=== PATIENT | male | born 1995 | race Asian ===

== ENCOUNTER 2021-05-16 12:02 | Emergency (ER) | payer OTHER, SELFPAY ==
[2021-05-16 12:15] VITALS: BP 129/78; PULSE 73; RESP 16; TEMP 36.3; O2SAT 97; BMI 29.2
--- NOTE | 2021-05-16 13:15 | ED.WOUNDLAC ---
HPI - Wound/Laceration <CRICKET Willingham Last Filed: 05/16/21 19:27> General Chief Complaint: Wound/Laceration Stated Complaint: cut finger lt hand Time Seen by Provider: 05/16/21 13:11 History of Present Illness HPI narrative: Patient is a 26-year-old male presenting to the emergency department today for evaluation a left thumb laceration. Patient states that he was cutting a bagel with a serrated knife this morning when the injury occurred. He states he was able to get bleeding under control at home and he denies any additional injuries. He denies fever, chills, chest pain, shortness of breath, cough, abdominal pain, nausea, vomiting, diarrhea, or numbness and tingling throughout the bilateral upper extremities. No other concerns are voiced at this time. Patient states that his tetanus vaccination is up-to-date. Review of Systems <Justin Burgos PA-C - Last Filed: 05/16/21 19:27> Constitutional Constitutional: Denies chills, Denies fatigue, Denies fever(s), Denies frequent falls, Denies lethargy and Denies weakness ENT Ears, Nose, Mouth, and Throat: Denies change in voice, Denies dizziness, Denies neck pain, Denies sore throat and Denies throat swelling Cardiovascular Cardiovascular: Denies chest pain, Denies irregular heart rhythm, Denies lightheadedness, Denies palpitations, Denies dyspnea, Denies dyspnea on exertion and Denies orthopnea Respiratory Respiratory: Denies cough, Denies dyspnea, Denies dyspnea on exertion and Denies wheezing Gastrointestinal Gastrointestinal: Denies abdominal pain, Denies change in bowel habits, Denies diarrhea, Denies nausea and Denies vomiting Musculoskeletal Musculoskeletal: Denies neck pain Integumentary/Breasts Skin/Breast: Denies pruritus, Denies erythema, Denies rash and Reports wounds (Superficial laceration left thumb) Neurologic Neurologic: Denies dizziness, Denies frequent falls and Denies weakness Endocrine Endocrine: Denies fatigue and Denies palpitations Allergic/Immunologic Allergic/Immunologic: Denies urticaria, Denies throat swelling and Denies wheezing Exam <CRICKET Willingham Last Filed: 05/16/21 19:27> Narrative Exam Narrative: GENERAL: 26 year old patient appears stated age. Well-developed patient, in no acute distress. HEAD: Atraumatic. Normocephalic. EYES: Pupils equal round and reactive. Extraocular motions intact. No scleral icterus. No injection or drainage. ENT: Nose without bleeding, purulent drainage. Throat without erythema, tonsillar hypertrophy or exudate. Airway patent. NECK: Trachea midline. Non tender CARDIOVASCULAR: Regular rate and rhythm without murmurs, gallops, or rubs. RESPIRATORY: Clear to auscultation. Breath sounds equal bilaterally. No wheezes, rales, or rhonchi. GASTROINTESTINAL: Abdomen soft, non-tender, nondistended. EXTREMITIES: No edema or joint tenderness. Good sensation appreciated throughout the bilateral upper extremities to light touch. Gross motor function intact to the bilateral upper extremities. BACK: Nontender without deformity or crepitance. No flank tenderness. NEURO: AOx3. SKIN: No rash or erythema of visible areas. Superficial linear laceration of the left thumb on the dorsal aspect of the hand. Laceration is below the nail bed. No surrounding erythema, warmth, or induration noted. No foreign body noted in the wound during examination. Initial Vital Signs Initial Vital Signs: Vital Signs Temperature 97.4 F L 05/16/21 12:15 Pulse Rate 73 05/16/21 12:15 Respiratory Rate 16 05/16/21 12:15 Blood Pressure 129/78 05/16/21 12:15 Pulse Oximetry 97 05/16/21 12:15 Cardio Pulses: radial pulses present on the left <Froylan Fischer DO - Last Filed: 05/17/21 07:13> Initial Vital Signs Initial Vital Signs: Vital Signs Temperature 97.4 F L 05/16/21 12:15 Pulse Rate 73 05/16/21 12:15 Respiratory Rate 16 05/16/21 12:15 Blood Pressure 129/78 05/16/21 12:15 Pulse Oximetry 97 05/16/21 12:15 Course <Justin Burgos PA-C - Last Filed: 05/16/21 19:27> Course Course Narrative: Dermabond will be applied to the wound. Vital Signs Vital signs: Vital Signs - 8 hr 05/16/21 12:15 Temperature 97.4 F L Pulse Rate 73 Respiratory Rate 16 Blood Pressure 129/78 Pulse Oximetry 97 <DO Jay Terry Last Filed: 05/17/21 07:13> Vital Signs Vital signs: Vital Signs - 8 hr 05/16/21 12:15 Temperature 97.4 F L Pulse Rate 73 Respiratory Rate 16 Blood Pressure 129/78 Pulse Oximetry 97 MDM - Wound/Laceration <Justin Burgos PA-C - Last Filed: 05/16/21 19:27> [facility] Narrative Medical decision making narrative: Patient is a 26-year-old male presenting to the emergency department today for evaluation a left thumb laceration. To consider superficial skin laceration versus tendon injury versus foreign body. Overall physical examination history reassuring. No foreign body noted in the wound during expiration. Patient is satisfied with the plan to Dermabond the wound. Strict return precautions discussed with patient prior to discharge. Discharge Plan Departure Patient Disposition: Home Clinical Impression: Laceration Instructions: DI for Minor Laceration Activity Restrictions/Additional Instructions: *You have been diagnosed with left thumb laceration *What to do: *Please continue to take your regular medications as directed. [ ] New medication prescriptions sent to your pharmacy: [ ] [ ] New medication written as a paper prescription [X] No new medications given *Please follow up with your primary care provider in 2-3 days, call for an appointment. Let them know you were seen in the Emergency Department and that we ask that you be seen in follow up. We will electronically transmit a record of today's note if your PCP is in our system. *Avoid soaking the left hand. Dermabond will be removed on its own. *If you do not have a primary care provider please contact the [facility] Resource line at [phone]. They will ask some questions about your medical history and help get you set up with a doctor in the community. *Return to Emergency Department if you should have any new, worsening or concerning symptoms, such as fever greater than 101 F, shaking chills, worsening pain, discharge from the laceration, excessive warmth around the laceration, persistent vomiting or other bothersome symptoms. <Froylan Fischer DO - Last Filed: 05/17/21 07:13> Cosign ED Attending Cosignature Attestation: Dr Fischer Co-Sign Statement: I was available for consultation during this patient's emergency department visit. This chart is signed by myself for administrative purposes only. I did not have direct contact with this patient during this visit. They were seen independently by the APC.
--- NOTE | 2021-05-16 13:47 | PC.NURSE ---
small superficial lac to L thumb not deep enough to need sutures. bleeding controlled. dermabond placed. NAD
== END 2021-05-16 13:48 | disposition home or self-care (01) ==
PROVIDERS: Emergency Provider Physician Assistant
DX: S61.012A Laceration without foreign body of left thumb without damage to nail, initial encounter (principal); W26.0XXA Contact with knife, initial encounter; Y93.G1 Activity, food preparation and clean up
CPT/HCPCS: 12001; 99282

== ENCOUNTER 2022-03-13 19:33 | Emergency (ER) | payer OTHER, SELFPAY ==
[2022-03-13] VITALS (7 sets, daily range): BP systolic 127–140; BP diastolic 72–83; PULSE 92–112; RESP 24–29; TEMP 37.8; O2SAT 95–102; BMI 29.2
--- NOTE | 2022-03-13 19:43 | DI.RAD.S_ITS ---
PROCEDURE: XR CHEST 2V INDICATIONS: shortness of breath TECHNIQUE: 2 views of the chest were acquired. COMPARISON: None. FINDINGS: Surgical changes and devices: None. Lungs and pleura: Lungs are clear. No pleural effusions or pneumothorax. Mediastinum: Mediastinal contours are normal. Heart size is normal. Bones and chest wall: No suspicious bony abnormalities. Soft tissues appear unremarkable. IMPRESSION: 1. No acute cardiopulmonary disease. Dictated by: John Wong M.D. on 03/13/2022 at 20:44 Approved by: John Wong M.D. on 03/13/2022 at 20:46
[2022-03-13] MEDS: ONDANSETRON 4 MG/2 ML INJ IV (20:21)
[2022-03-13] MEDS: SODIUM CHLORIDE 0.9% 1,000 ML 1000 ML IV (20:22)
[2022-03-13 20:34] LABS: Add Manual Diff / Slide Review NO; Basophils Absolute Auto 0 /uL (0-100); Basophils Percent Auto 0.3 % (0-2); Eosinophils Absolute Auto 100 /uL (0-450); Eosinophils Percent Auto 1.4 % (2-4); Hematocrit 41.1 % (41-53); Hemoglobin 14.2 g/dL (13.5-17.5); Lymphocytes Absolute Auto 700 /uL (1100-4500); Lymphocytes Percent Auto 9.3 % (25-40); Mean Corpuscular HGB Conc 34.5 % (30-36); Mean Corpuscular Volume 86.8 fL (80-100); Monocytes Absolute Auto 1300 /uL (0-900); Monocytes Percent Auto 16.3 % (3-14); Neutrophils Absolute Auto 5700 /uL (1500-7000); Neutrophils Percent Auto 72.7 % (50-75); Platelet Count 236 X10^3/uL (150-400); Red Blood Cell Count 4.73 X10^6/uL (4.5-5.9); Red Cell Distribution Width 13.2 % (11.6-14.8); White Blood Cell Count 7.9 X10^3/uL (4.5-11.0)
[2022-03-13 20:37] LABS: Lactate (Lactic Acid) 0.7 mmol/L (0.7-2.1)
[2022-03-13 20:38] LABS: Alanine Aminotransferase 108 IU/L (<50); Albumin 4.9 g/dL (3.5-5.0); Albumin Globulin Ratio 1.4 (1.0-2.8); Alkaline Phosphatase 75 U/L (38-126); Aspartate Aminotransferase 65 IU/L (17-59); BUN Creatinine Ratio 10.1 (6-22); Bilirubin Total 0.3 mg/dL (0.2-1.3); Blood Urea Nitrogen 9 mg/dL (9-20); Calcium 9.1 mg/dL (8.4-10.2); Carbon Dioxide 22 mmol/L (22-32); Chloride 102 mmol/L (98-107); Estimated Glomerular Filt Rate > 60 mL/min (>60); Globulin 3.4 g/dL (1.7-4.1); Glucose 97 mg/dL (70-100); HEMOLYSIS < 15 (0-50); Potassium 3.9 mmol/L (3.4-5.1); Sodium 136 mmol/L (137-145); Total Protein 8.3 g/dL (6.3-8.2)
--- NOTE | 2022-03-13 20:51 | ED.FEVER ---
HPI - Fever General Chief Complaint: Shortness of Breath/Dyspnea Stated Complaint: COVID POSITIVE, SHORTNESS OF BREATH/CHEST PAIN Time Seen by Provider: 03/13/22 20:17 Source: patient Mode of arrival: Ambulatory History of Present Illness HPI Narrative: Patient is a healthy 27-year-old male who presents with COVID. He states his son had it last week he started having symptoms early this morning and tested positive. He has low-grade fever he feels like he is short of breath he is unvaccinated. His O2 sat is 97% on room air. He is mildly tachycardic. No other symptoms at this time. Related Data Allergies Allergy/AdvReac Type Severity Reaction Status Date / Time ibuprofen Allergy Swelling Verified 03/13/22 19:37 of Lip/Tongue/Throat Sulfa (Sulfonamide Allergy Verified 03/13/22 19:37 Antibiotics) Review of Systems Review of Systems Narrative: GENERAL: +fever HEENT: Denies sinus pain, ear pain, sore throat, difficulty swallowing, neck pain RESPIRATORY: See HPI CARDIOVASCULAR: Denies chest pain, palpitations, orthopnea, edema GASTROINTESTINAL: Denies nausea, vomiting, abdominal pain, diarrhea, constipation, melena. : Denies dysuria, frequency, incontinence, hematuria, urinary retention, flank pain. MUSCULOSKELETAL: Denies weakness, joint pain, or bony pain SKIN: No rash, no erythema, no pruritus NEUROLOGIC: Denies weakness, dizziness, headache, numbness, change in speech, confusion PSYCHIATRIC: No concerning psychosocial issues. 12 point review of systems is negative except for those stated above and HPI Patient History Social History Smoking Status: Never smoker Smoking Status: Never smoker alcohol intake frequency: holidays/special occasions only Substance Use Type: does not use Exam Initial Vital Signs Initial Vital Signs: Vital Signs Temperature 100.1 F H 03/13/22 19:37 Pulse Rate 112 H 03/13/22 19:37 Respiratory Rate 24 03/13/22 19:37 Blood Pressure 134/74 03/13/22 19:37 Pulse Oximetry 98 03/13/22 19:37 Oxygen Delivery Method 03/13/22 19:37 GENERAL: Alert 27-year-old male no acute distress HEENT: Head atraumatic,EOMI, pupils reactive, neck is supple CARDIOVASCULAR: Regular rate and rhythm without murmurs, rubs or gallops. RESPIRATORY: Breath sounds equal bilaterally, no wheezes rales or rhonchi. ABDOMEN: Soft, nontender. Normoactive bowel sounds all 4 quadrants. No guarding or rebound. EXTREMITIES: Normal range of motion, no clubbing or edema. Neurovascularly intact NEUROLOGICAL: Alert and oriented x4. SKIN: Warm, dry, no laceration, no petechiae, no rashes or lesions. Course Orders Ordered: ED Orders 03/13/22 19:43 XR chest 2V Stat EKG-12 Lead Stat Measure peak expiratory flow ONCE RT Consult Eval and Treat Now 03/13/22 20:15 Complete Blood Count AUTO DIFF Stat Comprehensive Metabolic Panel Stat Lactate (Lactic Acid) Stat Discontinued Medications Sodium Chloride (Normal Saline 0.9%) 1,000 mls @ 1,000 mls/hr IV BOLUS ONE Stop: 03/13/22 21:14 Last Admin: 03/13/22 20:25 Dose: Not Given Documented By: RORY Sodium Chloride (Normal Saline 0.9%) 1,000 mls @ 1,000 mls/hr IV BOLUS ONE Stop: 03/13/22 21:16 Last Infusion: 03/13/22 21:44 Dose: 0 mls/hr Documented By: Admin: 03/13/22 20:22 Dose: 1,000 mls/hr Documented By: RORY Ondansetron HCl (Ondansetron 4 Mg/2 Ml Inj) 4 mg IV NOW ONE Stop: 03/13/22 20:16 Last Admin: 03/13/22 20:21 Dose: 4 mg Documented By: BLANCA Vital Signs Vital signs: Vital Signs - 8 hr 03/13/22 19:37 03/13/22 20:05 03/13/22 20:10 Temperature 100.1 F H Pulse Rate 112 H 106 H 102 H Respiratory Rate 24 27 H 25 H Blood Pressure 134/74 136/81 140/83 Pulse Oximetry 98 95 102 H Oxygen Delivery Method Room Air Room Air Room Air 03/13/22 20:42 03/13/22 20:42 03/13/22 21:00 Temperature Pulse Rate 101 H Respiratory Rate 29 H Blood Pressure 127/72 128/76 Pulse Oximetry 97 Oxygen Delivery Method 03/13/22 21:00 03/13/22 21:30 09/23/22 21:30 Temperature Pulse Rate 98 H 92 H Respiratory Rate 27 H 29 H Blood Pressure 127/79 Pulse Oximetry 97 98 Oxygen Delivery Method 03/13/22 21:58 03/13/22 21:58 Temperature Pulse Rate 92 H Respiratory Rate 29 H Blood Pressure 130/73 Pulse Oximetry 99 Oxygen Delivery Method MDM - Fever Lab Data Result diagrams: 03/13/22 20:15 03/13/22 20:15 Labs: Lab Results 03/13/22 03/13/22 03/13/22 Range/Units 20:15 20:15 20:15 WBC 7.9 (4.5-11.0) X10^3/uL RBC 4.73 (4.5-5.9) X10^6/uL Hgb 14.2 (13.5-17.5) g/dL Hct 41.1 (41-53) % MCV 86.8 (80-100) fL MCH 30.0 (26-34) PG MCHC 34.5 (30-36) % RDW 13.2 (11.6-14.8) % Plt Count 236 (150-400) X10^3/uL Neut % (Auto) 72.7 (50-75) % Lymph % (Auto) 9.3 L (25-40) % [place] % (Auto) 16.3 H (3-14) % Eos % (Auto) 1.4 L (2-4) % Baso % (Auto) 0.3 (0-2) % Neut # (Auto) 5700 (3455-2083) /uL Lymph # (Auto) 700 L (8336-1662) /uL [place] # (Auto) 1300 H (0-900) /uL Eos # (Auto) 100 (0-450) /uL Baso # (Auto) 0 (0-100) /uL Sodium 136 L (137-145) mmol/L Potassium 3.9 (3.4-5.1) mmol/L Chloride 102 (98-107) mmol/L Carbon Dioxide 22 (22-32) mmol/L BUN 9 (9-20) mg/dL Creatinine 0.89 (0.66-1.25) mg/dL Estimated GFR > 60 (>60) mL/min BUN/Creatinine Ratio 10.1 (6-22) Glucose 97 (70-100) mg/dL Lactate 0.7 (0.7-2.1) mmol/L Calcium 9.1 (8.4-10.2) mg/dL Total Bilirubin 0.3 (0.2-1.3) mg/dL AST 65 H (17-59) IU/L ALT 108 H (<50) IU/L Alkaline Phosphatase 75 (38-126) U/L Total Protein 8.3 H (6.3-8.2) g/dL Albumin 4.9 (3.5-5.0) g/dL Globulin 3.4 (1.7-4.1) g/dL Albumin/Globulin Ratio 1.4 (1.0-2.8) Imaging Data Chest x-ray: Radiologist's Impression: Signed Patient: Mendel Herrera MR#: [id number] : 1995 Acct:[id number] Age/Sex: 27 / M Date of Service: 03/13/22 Loc: ED Accession Number: [id number] ?? Procedure: XR chest 2V Ordering Provider: Hamida Munroe D.O. PROCEDURE:? XR CHEST 2V ? INDICATIONS:? shortness of breath ? TECHNIQUE:? 2 views of the chest were acquired.? ? COMPARISON:? None. ? FINDINGS:? ? Surgical changes and devices:? None.? ? Lungs and pleura:? Lungs are clear.? No pleural effusions or pneumothorax.? ? Mediastinum:? Mediastinal contours are normal.? Heart size is normal.? ? Bones and chest wall:? No suspicious bony abnormalities.? Soft tissues appear unremarkable.? ? IMPRESSION:? ? 1.? No acute cardiopulmonary disease. ? ? ? Dictated by: John Wong M.D. on 03/13/2022 at 20:44 ? ? ECG Data Interpretation: Normal sinus rhythm rate 97 FL interval 146 year rest [address] changes MDM Narrative Medical decision making narrative: The patient overall appears well. Heart rate has improved with IV fluids. He is hypoxic he is healthy there is no rate for any intervention at this time. Discussed warning signs and when to return to the ED and monitor at home Discharge Plan Departure Patient Disposition: Home Clinical Impression: COVID-19 Instructions: COVID-19 Activity Restrictions/Additional Instructions: *You have been diagnosed with COVID-19 *What to do: At this time I recommend staying hydrated fever control as needed. Monitoring oxygen *Continue to take medications as directed Tylenol 1000 mg every 6 hours if needed for fever or pain Ibuprofen 600 mg every 6 hours if needed for fever or pain *Follow up with your primary care provider in 2-3 days or call [phone] *Return to ER if you should have than 90%, fever not controlled not tolerating fluids or any new, worsening or concerning symptoms Visit Report Forms: Patient Portal/API
== END 2022-03-13 22:03 | disposition home or self-care (01) ==
PROVIDERS: Emergency Provider Emergency Medicine
DX: U07.1 COVID-19 (principal); R09.02 Hypoxemia
CPT/HCPCS: 36415; 71046; 80053; 83605; 85025; 93005; 96361; 96374; 99284; J2405

== ENCOUNTER 2024-09-01 16:01 | Emergency (ER) | payer OTHER, SELFPAY ==
[2024-09-01 16:09] VITALS: BP 151/90; PULSE 80; RESP 16; TEMP 36.8; O2SAT 100
--- NOTE | 2024-09-01 16:12 | DI.RAD.S_ITS ---
PROCEDURE: XR CHEST 2V INDICATIONS: post flu/ coughing, r/o secondary PNA TECHNIQUE: 2 views of the chest were acquired. COMPARISON: [facility], CR, XR CHEST 2V, 03/13/2022, 20:03. FINDINGS: Surgical changes and devices: None. Lungs and pleura: Lungs are clear. No pleural effusions or pneumothorax. Mediastinum: Mediastinal contours are normal. Heart size is normal. Bones and chest wall: No suspicious bony abnormalities. Soft tissues appear unremarkable. IMPRESSION: No acute cardiopulmonary abnormality is seen. Dictated by: Luke Trimble M.D. on 09/01/2024 at 16:31 Approved by: Luke Trimble M.D. on 09/01/2024 at 16:31
--- NOTE | 2024-09-01 16:33 | ED_ITS ---
HPI - URI/Sore Throat <Vera Marcos PA-C - Last Filed: 09/01/24 16:59> General Chief Complaint: Upper Respiratory Symptoms Stated Complaint: coughing blood , fever x 10 days Time Seen by Provider: 09/01/24 16:17 History of Present Illness HPI Narrative: Mr. Herrera is a very pleasant 29-year-old male, no reported past medical history, no smoking who presents to the emergency department for productive cough and sinus congestion x 10 days. Patient states he recently has been having blood-tinged sputum with his cough. Reports that his entire family including 2 young sons and have been sick over the last week, with influenza a. Reports that all of their symptoms have improved however he continues to have productive cough and worsening sinus pressure. No significant nasal drainage but he does have significant nasal pressure despite using Neti pot and [id number] regimens. No current fevers but he was having fevers over the last 10 days. Reports that if he is not sucking on cough drops and he has continuous throat irritation and cough. Denies ear pain, chest pain, shortness of breath, abdominal pain, nausea, vomiting diarrhea. Related Data Previous Rx's Medication Instructions Recorded amoxicillin 875 mg-potassium 1 tab PO Q12H 5 days #10 tabs 09/01/24 clavulanate 125 mg tablet benzonatate 100 mg capsule 100 mg PO BID-TID PRN cough #20 09/01/24 caps Allergies Allergy/AdvReac Type Severity Reaction Status Date / Time ibuprofen Allergy Swelling Verified 03/13/22 19:37 of Lip/Tongue/Throat Sulfa (Sulfonamide Allergy Verified 03/13/22 19:37 Antibiotics) Review of Systems <Vera Marcos PA-C - Last Filed: 09/01/24 16:59> Review of Systems ROS Unobtainable: All systems reviewed & are unremarkable except as noted in HPI and below Patient History <Vera Marcos PA-C - Last Filed: 09/01/24 16:59> Social History Smoking Status: Never smoker Smoking Status: Never smoker alcohol intake frequency: holidays/special occasions only Exam <Vera Marcos PA-C - Last Filed: 09/01/24 16:59> Narrative Exam Narrative: GENERAL: 29 year old patient appears stated age. Well-developed patient, in no acute distress. HEAD: Atraumatic. Normocephalic. EYES: Extraocular motions intact. No scleral icterus. No injection or drainage. ENT: Nose without bleeding, purulent drainage. Bilateral maxillary sinus tenderness. Throat without erythema, tonsillar hypertrophy or exudate. Airway patent. No palpable lymphadenopathy. NECK: Trachea midline. Cervical ROM intact. CARDIOVASCULAR: Regular rate and rhythm. RESPIRATORY: ?Nonlabored respirations. ?Speaking in clear, full sentences. Frequent dry cough. There is some coarse breath sounds in the right lower lobe however no wheezing, no rhonchi, no rales. EXTREMITIES: No edema or joint tenderness. BACK: Nontender without deformity or crepitance. No flank tenderness. NEURO: AOx3. ?Clear speech. ?Moves all 4 extremities appropriately. SKIN: No rash or erythema of visible areas Initial Vital Signs Initial Vital Signs: Vital Signs Temperature 98.3 F 09/01/24 16:09 Pulse Rate 80 09/01/24 16:09 Respiratory Rate 16 09/01/24 16:09 Blood Pressure 151/90 H 09/01/24 16:09 Pulse Oximetry 100 09/01/24 16:09 Oxygen Delivery Method Room Air 09/01/24 16:09 <DO Jay Ring Last Filed: 09/02/24 22:12> Initial Vital Signs Initial Vital Signs: Vital Signs Temperature 98.3 F 09/01/24 16:09 Pulse Rate 80 09/01/24 16:09 Respiratory Rate 16 09/01/24 16:09 Blood Pressure 151/90 H 09/01/24 16:09 Pulse Oximetry 100 09/01/24 16:09 Oxygen Delivery Method Room Air 09/01/24 16:09 Course <Vera Marcos PA-C - Last Filed: 09/01/24 16:59> Orders Ordered: Discontinued Medications Benzonatate (Benzonatate 100 Mg Capsule) 200 mg PO NOW ONE Stop: 09/01/24 16:33 Last Admin: 09/01/24 16:35 Dose: 200 mg Documented By: HEATHER Vital Signs Vital signs: Vital Signs - 8 hr 09/01/24 16:09 Temperature 98.3 F Pulse Rate 80 Respiratory Rate 16 Blood Pressure 151/90 H Pulse Oximetry 100 Oxygen Delivery Method Room Air <DO Jay Ring Filed: 09/02/24 22:12> Orders Ordered: Discontinued Medications Benzonatate (Benzonatate 100 Mg Capsule) 200 mg PO NOW ONE Stop: 09/01/24 16:33 Last Admin: 09/01/24 16:35 Dose: 200 mg Documented By: HEATHER Vital Signs Vital signs: Vital Signs - 8 hr 09/01/24 16:09 Temperature 98.3 F Pulse Rate 80 Respiratory Rate 16 Blood Pressure 151/90 H Pulse Oximetry 100 Oxygen Delivery Method Room Air MDM - URI/Sore Throat <Vera Marcos PA-C - Last Filed: 09/01/24 16:59> Medical Records Attestation: I reviewed the patient's medical records. Medical records narrative: Chest x-ray 03/13/2022, ED visit for COVID-19. Imaging Data Chest x-ray: Radiologist's Impression: PROCEDURE: XR CHEST 2V INDICATIONS: post flu/ coughing, r/o secondary PNA TECHNIQUE: 2 views of the chest were acquired. COMPARISON: [facility], , XR CHEST 2V, 03/13/2022, 20:03. FINDINGS: Surgical changes and devices: None. Lungs and pleura: Lungs are clear. No pleural effusions or pneumothorax. Mediastinum: Mediastinal contours are normal. Heart size is normal. Bones and chest wall: No suspicious bony abnormalities. Soft tissues appear unremarkable. IMPRESSION: No acute cardiopulmonary abnormality is seen. [facility] Narrative Medical decision making narrative: 29-year-old male, no reported past medical history, no smoking who presents to the emergency department for productive cough and sinus congestion x 10 days. Differential diagnosis includes but is not limited to bacterial sinusitis, rhinosinusitis, pneumonia, bronchitis, etc. On exam the patient is in no acute distress, nontoxic appearing, vital signs appropriate. He is not tachycardic or hypoxic. He reports occasional blood- tinged sputum, recent likely influenza a with continuing sinus pressure and cough. Chest x-ray obtained in triage is negative for pneumonia. However he does have some coarse breath sounds auscultated on exam, significant sinus pressure that has been present for 10 days, therefore we will treat with Augmentin b.i.d. x5 days for suspected acute bacterial rhinosinusitis. He was given a dose of benzonatate for cough and a prescription as well. Recommended supportive care with Tylenol, rest, increase hydration. ED return precautions discussed. PCP follow up advised. He verbalized understanding of all information in his happy with this plan. He is stable for discharge home. Discharge Plan Departure Patient Disposition: Home Clinical Impression: Acute bacterial rhinosinusitis, Bronchitis Instructions: DI for Sinusitis, DI for Acute Bronchitis Activity Restrictions/Additional Instructions: Dear Mr. Herrera, Thank you for coming to the emergency department. Today you were evaluated for 10 days of cough and congestion. Your chest x-ray was negative for pneumonia however your symptoms are concerning for a bacterial sinus infection. I have prescribed you an antibiotic to take twice a day for the next 5 days. Be sure to complete the full course. I have also prescribed you cough medicine to take if needed. Please rest, hydrate, use Tylenol for pain, and drink warm tea with honey. Please return to the emergency department if you develop any new or worsening symptoms such as chest pain, trouble breathing, coughing up increased amounts of blood, or any other concerns. Please follow up with your primary care doctor within the next 2-3 days for ER follow-up. (If you do not have a PCP you can call [phone]. ?to schedule an appointment with an [facility] Primary Care Provider) IF YOU DEVELOP ANY NEW OR WORSENING SYMPTOMS, RETURN TO THE ER! Please read the attached instructions, they highlight more specific treatments and interventions for you at home. Thank you for letting me participate in your care, Vera Marcos PA-C Prescriptions: New amoxicillin-pot clavulanate 875-125 mg tablet 1 tab PO Q12H 5 Days Qty: 10 0RF benzonatate 100 mg capsule 100 mg PO BID-TID PRN (Reason: cough) Qty: 20 0RF Rx Instructions: Can take up to 200 mg per dose. Keep away from children. Referrals: Miscellaneous,Doctor, MD [Primary Care Provider] - Stand Alone Forms: Patient Portal/API/Survey, Work Release Note ED Sign-out <Hamida Munroe DO - Last Filed: 09/02/24 22:12> Cosign ED Attending Tom Attestation: I was available for consultation.
[2024-09-01] MEDS: BENZONATATE 100 MG CAPSULE 200 MG PO (16:35)
[2024-09-01 16:58] VITALS: BP 145/88; PULSE 75; RESP 16; O2SAT 100
== END 2024-09-01 16:59 | disposition home or self-care (01) ==
PROVIDERS: Emergency Provider Physician Assistant
DX: J01.90 Acute sinusitis, unspecified (principal); J40 Bronchitis, not specified as acute or chronic
CPT/HCPCS: 71046; 99283